=== PATIENT | male | born 1975 | race Hispanic/Latino ===

== ENCOUNTER 2016-12-23 15:27 | Observation (INO) | payer MEDICAID, OTHER ==
[2016-12-23 15:39] VITALS: BP 156/64; PULSE 57; RESP 20; TEMP 97.2; O2SAT 100
[2016-12-23] MEDS ORDERED: Sodium Chloride 0.9% 1,000 ML IV STA (16:02)
[2016-12-23] MEDS ORDERED: Iohexol 240 (50 ml) PO ONE (16:02)
[2016-12-23] MEDS ORDERED: Iohexol 240 (50 ml) ONE (16:08)
--- NOTE | 2016-12-23 16:09 | ED PDOC ---
HPI: Abdomen Time Seen by Provider: 12/23/16 15:49 Chief Complaint (Nursing): GI Problem Chief Complaint (Provider): GI Problem History Per: Patient History/Exam Limitations: no limitations Onset/Duration Of Symptoms: Days (x4 days) Current Symptoms Are (Timing): Still Present Additional Complaint(s): 41 y/o male with a past medical history of hypertension who presents to the emergency department with a complaint of constipation and abdominal pain described as cramping x4 days. Associated with lower back pain. Last bowel movement was 12/20/2016. Denies nausea, vomiting, diarrhea, congestion, cough, fever, or rectal pain. Has had similar in the past. PMD: Dr. Bryanna Rodriguez MD Past Medical History Reviewed: Historical Data, Nursing Documentation, Vital Signs Vital Signs: Last Vital Signs Temp 97.2 F L 12/23/16 15:36 Pulse 57 L 12/23/16 15:36 Resp 20 12/23/16 15:36 BP 156/64 H 12/23/16 15:36 Pulse Ox 100 12/23/16 16:14 - Medical History PMH: Anxiety, HTN Denies: Chronic Kidney Disease Other PMH: constipation - Surgical History Surgical History: No Surg Hx - Family History Family History: States: Diabetes, Hypertension Denies: CAD - Social History Current smoker - smoking cessation education provided: Yes (Light Smoker < 10 Cigarettes Daily) Alcohol: Social Drugs: Denies - Home Medications Home Medications: Ambulatory Orders Medication Instructions Recorded Alprazolam [Xanax] 0.25 mg PO DAILY PRN #3 tab 04/26/15 Losartan [Cozaar] 100 mg PO DAILY 08/30/16 Sennosides [Senna] 2 tab PO DAILY #20 tablet 08/30/16 - Allergies Allergies/Adverse Reactions: Allergies Allergy/AdvReac Type Severity Reaction Status Date / Time No Known Allergies Allergy Verified 12/23/16 15:35 Review of Systems ROS Statement: Except As Marked, All Systems Reviewed And Found Negative ENT: Negative for: Nose Congestion Respiratory: Negative for: Cough Gastrointestinal: Positive for: Abdominal Pain (cramping), Constipation. Negative for: Nausea, Vomiting, Diarrhea, Rectal Pain Musculoskeletal: Positive for: Back Pain (lower region) Physical Exam - Reviewed Nursing Documentation Reviewed: Yes Vital Signs Reviewed: Yes - Physical Exam Appears: Positive for: Non-toxic, No Acute Distress Head Exam: Positive for: ATRAUMATIC, NORMOCEPHALIC Skin: Positive for: Normal Color, Warm, Dry Eye Exam: Positive for: Normal appearance. Negative for: Conjunctival injection ENT: Positive for: Normal ENT Inspection Neck: Positive for: Normal, Supple Cardiovascular/Chest: Positive for: Regular Rate, Rhythm. Negative for: Murmur Respiratory: Positive for: Normal Breath Sounds. Negative for: Accessory Muscle Use, Respiratory Distress Gastrointestinal/Abdominal: Positive for: Normal Exam, Soft. Negative for: Tenderness Back: Positive for: Normal Inspection. Negative for: L CVA Tenderness, R CVA Tenderness Extremity: Positive for: Normal ROM. Negative for: Tenderness, Pedal Edema Neurologic/Psych: Positive for: Alert, Oriented - Laboratory Results Result Diagrams: 12/23/16 16:20 12/23/16 16:20 Interpretation Of Abn Labs: no acute - ECG O2 Sat by Pulse Oximetry: 100 (RA) Pulse Ox Interpretation: Normal - CT Scan/US ct Other Rad Studies (CT/US): Read By Radiologist Other Rad Interpretation: no acute - Progress ED Course And Treament: 1956: Stable. AAOx3. Pain free. Tolerated po. FU with GI. Medical Decision Making Medical Decision Making: Time: 15:49 Initial impression: Constipation Initial plan: --ABD Pelvis PO & IV Contrast (CT) --COMP Metabolic Panel --Lipase Stat --Urine Dip --CBC w/ differential --Sodium Chloride 1,000 ml IV 1,000 mls/hr --Omnipaque 240 50ml PO --Admit to hospital Routine --Patient is persistent on getting a CAT Scan completed; advised that it was not needed. Scribe Attestation: Documented by Lyubov Shea, acting as a scribe for Eric Junior MD. Provider Scribe Attestation: All medical record entries made by the Scribe were at my direction and personally dictated by me. I have reviewed the chart and agree that the record accurately reflects my personal performance of the history, physical exam, medical decision making, and the department course for this patient. I have also personally directed, reviewed, and agree with the discharge instructions and disposition. ED OBSERVATION Discharge: Yes Date of observation admission: 12/23/16 Time of observation admission: 16:00 - Observation admission statement Patient is being placed in observation because:: Stable. pain eval. - Goals of Observation Goals of observation are:: pain controlled. Disposition - Clinical Impression Clinical Impression: Abdominal pain, Constipation - Patient ED Disposition Is Patient to be Admitted: No Counseled Patient/Family Regarding: Studies Performed, Diagnosis, Need For Followup - Disposition Disposition: Routine/Home Disposition Time: 19:58 Condition: STABLE - POA Present On Arrival: None
[2016-12-23 16:33] LABS: BASO # 0.1 K/uL (0.0-0.2); BASO % 0.7 % (0.0-2.0); EOS # 0.3 K/uL (0.0-0.7); EOS % 3.7 % (0.0-4.0); HEMATOCRIT 41.5 % (35.0-51.0); LYMPH # 3.2 K/uL (1.0-4.3); MEAN CELL VOLUME 93.9 fl (80.0-94.0); MEAN CORPUSCULAR HEMOGLOBIN 31.6 pg (27.0-31.0); MEAN CORPUSCULAR HGB CONC 33.7 g/dL (33.0-37.0); MEAN PLATELET VOLUME 9.4 fl (7.2-11.7); MONO % 11.3 % (0.0-10.0); NEUT # 4.2 K/uL (1.8-7.0); NEUT % 48.3 % (50.0-75.0); RED CELL DISTRIBUTION WIDTH 13.3 % (11.5-14.5); WHITE BLOOD COUNT 8.8 K/uL (4.8-10.8)
[2016-12-23 16:59] LABS: ALB/GLOB RATIO 1.3 (1.0-2.1); ALKALINE PHOSPHATASE 53 U/L (38-126); ALT/SGPT 36 U/L (21-72); AST/SGOT 33 U/L (17-59); BILIRUBIN,TOTAL 0.4 mg/dl (0.2-1.3); BLOOD UREA NITROGEN 17 mg/dl (9-20); CALCIUM 9.4 mg/dL (8.4-10.2); CARBON DIOXIDE 26 mmol/L (22-30); CHLORIDE 104 mmol/L (98-107); GFR AFRICAN-AMERICAN > 60; GLUCOSE,RANDOM 97 mg/dL (75-110); LIPASE 43 U/L (23-300); POTASSIUM 4.6 MMOL/L (3.6-5.0); SODIUM 141 mmol/l (132-148); TOTAL PROTEIN 7.4 G/DL (6.3-8.2)
[2016-12-23] MEDS ORDERED: Iohexol 300 100 ML IJ ONE (17:56)
[2016-12-23] MEDS ORDERED: Sodium Chloride 0.9% 50 ML IV ONE (17:56)
--- NOTE | 2016-12-23 19:16 | CT ---
EXAM: CT Abdomen and Pelvis With Intravenous Contrast CLINICAL HISTORY: 41 years old, male; Pain; Abdominal pain; Localized; Lower; Additional info: Abd pain TECHNIQUE: Axial computed tomography images of the abdomen and pelvis with intravenous contrast. This CT exam was performed using one or more of the following dose reduction techniques: automated exposure control, adjustment of the mA and/or kV according to patient size, and/or use of iterative reconstruction technique. Coronal and sagittal reformatted images were created and reviewed. CONTRAST: 98 mL of [id number] administered intravenously. EXAM DATE/TIME: 12/23/2016 4:00 PM COMPARISON: There are no prior studies for comparison. FINDINGS: Lower thorax: Heart size is normal. Lung bases are mildly hyperinflated. There is no focal consolidation. ABDOMEN: Liver: unremarkable Gallbladder and bile ducts: unremarkable Pancreas: unremarkable Spleen: unremarkable Adrenals: unremarkable Kidneys and ureters: unremarkable Stomach and bowel: Stomach is incompletely distended. Rotation is normal. There is no obstruction. Proximal small bowel is mildly distended with scattered air-fluid levels. There is no obstruction. There is limitation of the distal ileum. Visualized portion of the appendix is unremarkable. There is moderate stool in the colon. There is scattered diverticulosis Appendix: See stomach and bowel PELVIS: Bladder: Bladder is almost empty. There is mild bladder wall thickening. Reproductive: Seminal vesicles and prostate are unremarkable. There is a left hydrocele, completely imaged. ABDOMEN and PELVIS: Intraperitoneal space: There is no free air.There is no free fluid. Bones/joints: There are degenerative changes in the osseus structures. Soft tissues: There is a fat-containing umbilical hernia. Vasculature: Aorta is normal in caliber. There are occasional vascular calcifications. Lymph nodes: There is no pathologic adenopathy. IMPRESSION: No acute solid visceral abnormalities; possible constipation, no CT findings of appendicitis or diverticulitis; left hydrocele; bladder wall thickening, underdistention versus inflammation Additional findings as described above.
== END 2016-12-23 20:16 | disposition home or self-care (01) ==
LOC: H.ER 15:27 → H.EROBSV 16:00 → UNDOADMOB 16:20
PROVIDERS: ADMIT Emergency Medicine; ATTEND Emergency Medicine
DX: K59.00 Constipation, unspecified (principal); R10.9 Unspecified abdominal pain; I10 Essential (primary) hypertension; F17.210 Nicotine dependence, cigarettes, uncomplicated